=== PATIENT | male | born 1945 | race Caucasian/White ===

== ENCOUNTER 2019-04-20 13:02 | Emergency (ER) | payer MEDICARE, OTHER ==
[2019-04-20] MEDS ORDERED: Bupivacaine 0.5%/EPINEPHrine 1:200,000 50 ML MDV NERVRT ONE (13:50)
--- NOTE | 2019-04-20 14:09 | EDM.PDOC ---
ED HPI GENERAL MEDICAL PROBLEM - General Chief Complaint: Laceration Stated Complaint: LACERATION OVER LEFT EYE Time Seen by Provider: 04/20/19 13:45 Source of Information: Reports: Patient History Limitations: Reports: No Limitations - History of Present Illness INITIAL COMMENTS - FREE TEXT/NARRATIVE: Alert Pleasant 73 yo male presents with head injury and facial laceration. Patient was working on the deck of his home ([employer]) when he stepped on a 2x6 deck board which flipped up and struck him in the face resulting in a left forehead laceration with bleeding and fall without additional injuries. Patient denies LOC, nausea, vomiting, headache or additional injuries. Patient was brought to ER by for evaluation. Onset: Today, Sudden Upper Forehead Pain Score (Numeric/FACES): 0 - Related Data Allergies Allergy/AdvReac Type Severity Reaction Status Date / Time amoxicillin Allergy Intermediate Stomach Verified 04/20/19 13:35 Upset ibuprofen Allergy Intermediate Hives Verified 04/20/19 13:36 Home Meds: Home Meds NK [No Known Home Meds] 04/20/19 [History] Past Medical History - Infectious Disease History Other Infectious Disease History: Lyme Disease x 2 treatment - Past Surgical History GI Surgical History: Reports: Hernia, Inguinal Social & Family History - Tobacco Use Smoking Status *Q: Former Smoker Years of Tobacco use: 50 Packs/Tins Daily: 1 Used Tobacco, but Quit: Yes Month/Year Tobacco Last Used: 2018 - Caffeine Use Caffeine Use: Reports: Coffee Other Caffeine Use: 2 cups per day - Alcohol Use Days Per Week of Alcohol Use: 2 Number of Drinks Per Day: 3 Total Drinks Per Week: 6 - Recreational Drug Use Recreational Drug Use: No ED ROS GENERAL - Review of Systems Review Of Systems: ROS reveals no pertinent complaints other than HPI. ED EXAM, SKIN/RASH Exam: See Below Exam Limited By: No Limitations General Appearance: Alert, WD/WN, No Apparent Distress Eye Exam: Bilateral Eye: EOMI, PERRL Ears: Normal External Exam, Normal Canal, Hearing Grossly Normal, Normal TMs Nose: Normal Inspection, Normal Mucosa, No Blood Throat/Mouth: Normal Inspection, Normal Lips, Normal Teeth, Normal Gums, Normal Oropharynx, Normal Voice, No Airway Compromise Head: Normocephalic. No: Atraumatic (Laceration 3.5 cm Left medial eyebrow full thickness ) Neck: Normal Inspection, Supple, Non-Tender, Full Range of Motion Respiratory/Chest: No Respiratory Distress, Lungs Clear, Normal Breath Sounds, No Accessory Muscle Use, Chest Non-Tender Cardiovascular: Normal Peripheral Pulses, Regular Rate, Rhythm, No Gallop, Other (Elevated Blood Pressure Recheck remained elevated 190/113) Extremities: Normal Inspection Neurological: Alert, Oriented, CN II-XII Intact, Normal Cognition, Normal Gait, Normal Reflexes, No Motor/Sensory Deficits Psychiatric: Normal Affect, Normal Mood Location, Skin: Face Characteristics: Other (irregular gapping laceration left medial eyebrow with bleeding and bruising noted) ED SKIN PROCEDURES - Laceration/Wound Repair Left Medial Face Lac/Wound length In cm: 3.5 Appearance: Irregular, Mildly Contaminated Distal NVT: Neuro & Vascular Intact Anesthetic Type: Local Local Anesthesia - Bupivicaine (Marcaine): 0.5% with EPI Local Anesthetic Volume: Other (9 cc) Skin Prep: Saline Saline Irrigation (cc's): 500 Exploration/Debridement/Repair: Wound Explored, In a Bloodless Field, Explored to Base, Minimal Debridement, No Foreign Material Found, Wound Margins Revised Closed with: Sutures Suture Size: 5-0 # of Sutures: 8 (bleeding controled) Suture Type: Running Suture Size: 4-0 # of Sutures: 3 Repaired with: Vicryl Tetanus Status Addressed: Yes Complications: No Course - Vital Signs Last Recorded V/S: Last Vital Signs Temp 36.2 C 04/20/19 13:36 Pulse 62 04/20/19 15:18 Resp 16 04/20/19 15:18 BP 192/113 H 04/20/19 15:18 Pulse Ox 99 04/20/19 15:18 - Orders/Labs/Meds Orders: Active Orders 24 hr Category Date Time Status Vaccines to be Administered [RC] PER UNIT ROUTINE Care 04/20/19 14:36 Active Wound Care [RC] DAILY Care 04/20/19 13:50 Active Meds: Medications Discontinued Medications Generic Name Dose Route Start Last Admin Trade Name Mana PRN Reason Stop Dose Admin Bupivacaine HCl/Epinephrine Bitart 50 ml 04/20/19 13:50 Marcaine 0.5%/Epinephrine 1:200,000 NERVRT 04/20/19 13:51 ONETIME ONE Diphtheria/Tetanus/Acell Pertussis 0.5 ml 04/20/19 14:36 Adacel IM 04/20/19 14:37 .ONCE ONE Departure - Departure Time of Disposition: 15:25 Disposition: Home, Self-Care 01 Clinical Impression: Head injury, Laceration of eyebrow, left, Elevated blood pressure reading - Discharge Information Instructions: Concussion, Adult, Head Injury, Adult, [id number], Sutured Wound Care, Hypertension, Form - Blood Pressure Record Sheet, Preventing Hypertension, Heart Disease Prevention, How to Take Your Blood Pressure Referrals: PCP,None [Primary Care Provider] - Forms: ED Department Discharge Additional Instructions: THE DISCHARGE INSTRUCTIONS ARE INTENDED A COMPLEMENT TO AND NOT A REPLACEMENT FOR THE VERBAL INSTRUCTIONS THAT I HAVE PROVIDED YOU TODAY. AFTER GOING OVER THE PLAN OF CARE AND PROVIDING YOU WITH THE VERBAL INSTRUCTIONS. YOU HAVE HAD THE OPPORTUNITY TO ASK FURTHER QUESTIONS AND TO CLARIFY UNCERTAINTIES. THANK YOU FOR ALLOWING US TO ASSIST WITH YOUR MEDICAL CONCERNS AND NEEDS. 1. SUTURE REMOVAL IN 5-7 days on the face. 2. KEEP WOUND DRY AND CLEAN X 48 HOURS. May shower with no water directed at wound. 3. TOPICAL ANTIBIOTIC TWICE A DAY AFTER GENTLE CLEANING. 4. TYLENOL (ACETAMINOPHEN) Max 4000mg per 24 hours for headache and pain. 5. TAKE YOUR BLOOD PRESSURE 1-2 times per day at various times and bring to PCP for recheck in 1 week to discuss HTN treatment and Heart Disease Risk factors. 6. FOLLOW HEAD INJURY, CONCUSSION AND WOUND CARE INFORMATION GIVEN. 7. RETURN IF HEADACHE, NAUSEA WITH FREQUENT VOMITING, SIGNS OF HEAD INJURY, LOCAL INFECTION/FEVER, CONCERNS OR CHANGES. Discharge Instructions Concussion You were seen today for signs of a concussion. The symptoms will vary, depending on the nature of your injury and your health. You may have: headache, confusion, nausea (feel sick to your stomach), vomiting (throwing up) and problems with memory, concentrating, or sleep. You may feel dizzy, irritable, and tired. Children and teens may need help from their parents, teachers, and coaches to watch for symptoms as they recover. Please follow-up as instructed by your provider today. Return to the clinic or Local Emergency Department if: Your headache gets worse or you start to have a really bad headache even with the recommended treatment plan. You feel drowsier, have growing confusion, or slurred speech. You keep repeating yourself. You have strange behavior or are feeling more irritable. You have a seizure. You vomit (throw up) more than once. You have trouble walking. You have weakness or numbness. Your neck pain gets worse. You have a loss of consciousness. You have blood for fluid coming from your ears or nose. You have new symptoms or anything that worries you. Home Care: Get lots of rest and get enough sleep at night. Take daytime naps or rest if you feel tired. Limit physical activity and thinking activities. These can make symptoms worse. o Physical activities include gym, sports, weight training, running, exercise , and heavy lifting. o Thinking activities include homework, class work, job-related work, and screen time (phone, computer, tablet, TV, and video games). Stick to a healthy diet and drink lots of fluids. Avoid alcohol. As symptoms improve, you may slowly return to your daily activities. If symptoms get worse or return, reduce your activity. Know that it is normal to feel sad or frustrated when you do not feel right and are less active. Going Back to Work: Your care team will tell you when you are ready to return to work. Limit the amount of work you do soon after your injury. This may speed healing. Take breaks if your symptoms get worse. You should also reduce your physical activity as well as activities that require a lot of thinking until you see your doctor. You may need shorter work days and a chemical equipment sales engineer workload. Avoid heavy lifting, working with machinery, driving and working at heights until your symptoms are gone or you are cleared by a provider. Going Back to School: If you are still having symptoms, you may need extra help at school. Tell your teachers and school nurse about your injury and symptoms. Ask them to watch for problems with learning, memory, and concentrating. Symptoms may get worse when you do schoolwork, and you may become more irritable. You may need shorter school days, a reduced workload, and to postpone testing. Do not drive or take gym class (physical activity) until cleared by a provider. Returning to Sports: Never return to play if you have any symptoms. A full recovery will reduce the chances of getting hurt again. Remember, it is better to miss one or two games than a whole season. You should rest from all physical activity until you see your provider. Generally, if all symptoms have completely cleared, your provider can help guide you to slowly return to sports. If symptoms return or worsen, stop the activity and see your provider. Important: If you are in an organized sport and under age 18, you will need written consent from a healthcare provider before you return to sports. Typically, this will be your primary care or sports medicine provider. Please make an appointment. If you were given a prescription for medicine here today, be sure toread all of the information (including the package insert) that comes with your prescription. This will include important information about the medicine, its side effects, and any warnings that you need to know about. The pharmacist who fills the prescription can provide more information and answer questions you may have about the medicine. If you have questions or concerns that the pharmacist cannot address, please call or return to the Emergency Department. Remember that you can always come back to the Emergency Department if you are not able to see your regular provider in the amount of time listed above, if you get any new symptoms, or if there is anything that worries you. Discharge Instructions Head Injury You have been seen today for a head injury. Your evaluation included a history and physical examination. You may have had a CT (CAT) scan performed, though most head injuries do not require a scan. Based on this evaluation, your provider today does not feel that your head injury is serious. Please follow-up as instructed by your provider today. Return to the clinic or Local Emergency Department if: You are confused or you are not acting right. Your headache gets worse or you start to have a really bad headache even with your recommended treatment plan. You vomit (throw up) more than once. You have a seizure. You have trouble walking. You have weakness or paralysis (cannot move) in an arm or a leg. You have blood or fluid coming from your ears or nose. You have new symptoms or anything that worries you. Sleeping: It is okay for you to sleep, but someone should wake you up if instructed by your provider, and someone should check on you at your usual time to wake up. Activity: Do not drive for at least [address] if you have dizzy spells or trouble concentrating, or remembering things. Do not return to any contact sports until cleared by your regular provider. MORE INFORMATION: Concussion: A concussion is a minor head injury that may cause temporary problems with the way the brain works. Although concussions are important, they are generally not an emergency or a reason that a person needs to be hospitalized. Some concussion symptoms include confusion, amnesia (forgetful), nausea (sick to your stomach) and vomiting (throwing up), dizziness, fatigue, memory or concentration problems, irritability and sleep problems. For most people, concussions are mild and temporary but some will have more severe and persistent symptoms that require on-going care and treatment. CT Scans: Your evaluation today may have included a CT scan (CAT scan) to look for things like bleeding or a skull fracture (broken bone). CT scans involve radiation and too many CT scans can cause serious health problems like cancer, especially in children. Because of this, your provider may not have ordered a CT scan today if they think you are at low risk for a serious or life threatening problem. If you were given a prescription for medicine here today, be sure toread all of the information (including the package insert) that comes with your prescription. This will include important information about the medicine, its side effects, and any warnings that you need to know about. The pharmacist who fills the prescription can provide more information and answer questions you may have about the medicine. If you have questions or concerns that the pharmacist cannot address, please call or return to the Emergency Department. Remember that you can always come back to the clinic or go to the Local Emergency Department if you are not able to see your regular provider in the amount of time listed above, if you get any new symptoms, or if there is anything that worries you. Discharge Instructions Laceration (Cut) You were seen today for a laceration (cut). Your provider examined your laceration for any problems such a buried foreign body (like glass, a splinter, or gravel), or injury to blood vessels, tendons, and nerves. Your provider may have also rinsed and/or scrubbed your laceration to help prevent an infection. It may not be possible to find all problems with your laceration on the first visit; occasionally foreign bodies or a tendon injury can go undetected. Your laceration may have been closed in one of several ways: No closure: many wounds will heal just fine without closure. Stitches: regular stitches that require removal. Fannin: skin preston are often used in the scalp/head. Wound adhesive (glue): skin glue can be used for certain lacerations and doesnt require removal. Wound strips (aka Butterfly bandages or steri-strips): these are bandages that help to close a wound. Absorbable stitches: dissolving stitches that go away on their own and usually dont require removal. A small percentage of wounds will develop an infection regardless of how well the wound is cared for. Antibiotics are generally not indicated to prevent an infection so are only given for a small number of high-risk wounds. Some lacerations are too high risk to close, and are left open to heal because closure can increase the likelihood that an infection will develop. Remember that all lacerations, no matter how expertly repaired, will cause scarring. We consider many factors, techniques, and materials, in our efforts to provide the best possible cosmetic outcome. Please follow-up as instructed by your emergency provider today. Return to the clinic or Local Emergency Department right away if: You have more redness, swelling, pain, drainage (pus), a bad smell, or red streaking from your laceration as these symptoms could indicate an infection. You have a fever of 100.4F or more. You have bleeding that you cannot stop at home. If your cut starts to bleed , hold pressure on the bleeding area with a clean cloth or put pressure over the bandage. If the bleeding does not stop after using constant pressure for 30 minutes, you should return to the Emergency Department for further treatment. An area past the laceration is cool, pale, or blue compared with the other side, or has a slower return of color when squeezed. Your dressing seems too tight or starts to get uncomfortable or painful. For children, signs of a problem might be irritability or restlessness. You have loss of normal function or use of an area, such as being unable to straighten or bend a finger normally. You have a numb area past the laceration. Return to the Emergency Department or see your regular provider if: The laceration starts to come open. You have something coming out of the cut or a feeling that there is something in the laceration. Your wound will not heal, or keeps breaking open. There can always be glass , wood, dirt or other things in any wound. They will not always show up, even on x-rays. If a wound does not heal, this may be why, and it is important to follow-up with your regular provider. Home Care: Take your dressing off in 12-24 hours, or as instructed by your provider, to check your laceration. Remove the dressing sooner if it seems too tight or painful, or if it is getting numb, tingly, or pale past the dressing. Gently wash your laceration 1-2 times daily with clean water and mild soap. It is okay to shower or run clean water over the laceration, but do not let the laceration soak in water (no swimming). If your laceration was closed with wound adhesive or strips: pat it dry and leave it open to the air. For all other repairs: after you wash your laceration , or at least 2 times a day, apply antibiotic ointment (such as Neosporin or Bacitracin) to the laceration, then cover it with a Band-Aid or gauze. Keep the laceration clean. Wear gloves or other protective clothing if you are around dirt. Follow-up for removal: If your wound was closed with preston or regular stitches, they need to be removed according to the instructions and timeline specified by your provider today. If your wound was closed with absorbable (dissolving) sutures, they should fall out, dissolve, or not be visible in about one week. If they are still visible, then they should be removed according to the instructions and timeline specified by your provider today. Scars: To help minimize scarring: Wear sunscreen over the healed laceration when out in the sun. Massage the area regularly once healed. You may apply Vitamin E to the healed wound. Wait. Scars improve in appearance over months and years. If you were given a prescription for medicine here today, be sure toread all of the information (including the package insert) that comes with your prescription. This will include important information about the medicine, its side effects, and any warnings that you need to know about. The pharmacist who fills the prescription can provide more information and answer questions you may have about the medicine. If you have questions or concerns that the pharmacist cannot address, please call or return to the Emergency Department. Remember that you can always come back to the clinic or go to the Local Emergency Department if you are not able to see your regular provider in the amount of time listed above, if you get any new symptoms, or if there is anything that worries you. - Problem List & Annotations (1) Head injury SNOMED Code(s): 59997460 Code(s): S09.90XA - UNSPECIFIED INJURY OF HEAD, INITIAL ENCOUNTER Status: Acute Current Visit: Yes (2) Laceration of eyebrow, left SNOMED Code(s): 50159490569295429 Code(s): S01.112A - LACERATION W/O FB OF LEFT EYELID AND PERIOCULAR AREA, INIT Status: Acute Current Visit: Yes - My Orders Last 24 Hours: My Active Orders 04/20/19 13:50 Wound Care [RC] DAILY 04/20/19 14:36 Vaccines to be Administered [RC] PER UNIT ROUTINE - Assessment/Plan Last 24 Hours: My Active Orders 04/20/19 13:50 Wound Care [RC] DAILY 04/20/19 14:36 Vaccines to be Administered [RC] PER UNIT ROUTINE
[2019-04-20] MEDS ORDERED: Diphtheria,Pertussis(Acell),Tetanus Vaccine 0.5 ML SDV IM ONE (14:36)
[2019-04-20] MEDS ORDERED: Bacitracin Oint 1 GM U/D Packet TOP ONE (15:51)
== END 2019-04-20 16:00 | disposition home or self-care (01) ==
LOC: JP.ED 13:02
DX: S01.112A Laceration without foreign body of left eyelid and periocular area, initial encounter (principal); S09.90XA Unspecified injury of head, initial encounter; R03.0 Elevated blood-pressure reading, without diagnosis of hypertension; Z23 Encounter for immunization; Z87.891 Personal history of nicotine dependence; Z88.1 Allergy status to other antibiotic agents; Z88.6 Allergy status to analgesic agent; W18.39XA Other fall on same level, initial encounter; W22.8XXA Striking against or struck by other objects, initial encounter
CPT/HCPCS: 12013; 90471; 90715; 99283; J3490

== ENCOUNTER 2019-06-22 10:12 | Emergency (ER) | payer MEDICARE, OTHER ==
[2019-06-22] MEDS ORDERED: Sodium Chloride 0.9% 10 ML Syringe FLUSH PRN (10:23)
[2019-06-22] MEDS ORDERED: Diltiazem IR 30 MG Tab PO ONE (10:34)
--- NOTE | 2019-06-22 10:37 | EDM.PDOC ---
ED HPI GENERAL MEDICAL PROBLEM - General Chief Complaint: Cardiovascular Problem Stated Complaint: IRREGULAR HEARTBEAT Time Seen by Provider: 06/22/19 10:25 Source of Information: Reports: Patient, Old Records, Provider History Limitations: Reports: No Limitations - History of Present Illness INITIAL COMMENTS - FREE TEXT/NARRATIVE: 74 yo male was in the clinic today for pre op exam/labs before a surgical procedure for recently discovered renal cancer(nephrectomy). He was found at that appt to have afib with RVR. He has no hx of this and currently has no sx's from it. He is only on chlorthalidone for meds. Had a UA, CBC, CMP done in the clinic today. 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) - Related Data Allergies Allergy/AdvReac Type Severity Reaction Status Date / Time amoxicillin Allergy Intermediate Stomach Verified 06/22/19 10:34 Upset ibuprofen Allergy Intermediate Hives Verified 06/22/19 10:34 Home Meds: Home Meds Chlorthalidone 1 tab PO DAILY 06/22/19 [History] Past Medical History - Infectious Disease History Other Infectious Disease History: Lyme Disease x 2 treatment - Past Surgical History GI Surgical History: Reports: Hernia, Inguinal Social & Family History - Caffeine Use Caffeine Use: Reports: Coffee Other Caffeine Use: 2 cups per day ED ROS GENERAL - Review of Systems Review Of Systems: See Below Constitutional: Reports: No Symptoms HEENT: Reports: No Symptoms Respiratory: Reports: No Symptoms Cardiovascular: Reports: No Symptoms Endocrine: Reports: No Symptoms GI/Abdominal: Reports: No Symptoms : Reports: No Symptoms Musculoskeletal: Reports: No Symptoms Skin: Reports: No Symptoms Neurological: Reports: No Symptoms Psychiatric: Reports: No Symptoms ED EXAM, GENERAL - Physical Exam Exam: See Below Exam Limited By: No Limitations General Appearance: Alert, WD/WN, No Apparent Distress Eye Exam: Bilateral Eye: Normal Inspection Ears: Normal External Exam, Normal Canal, Hearing Grossly Normal, Normal TMs Ear Exam: Bilateral Ear: Auricle Normal, Canal Normal Nose: Normal Inspection, No Blood Throat/Mouth: Normal Inspection, Normal Lips, Normal Oropharynx, Normal Voice, No Airway Compromise Head: Atraumatic, Normocephalic Neck: Normal Inspection Respiratory/Chest: No Respiratory Distress, Lungs Clear, Normal Breath Sounds, No Accessory Muscle Use Cardiovascular: No Edema, Tachycardia, Irregularly Irregular GI/Abdominal: Normal Bowel Sounds, Soft, Non-Tender, No Distention Back Exam: Normal Inspection. No: CVA Tenderness (R), CVA Tenderness (L) Extremities: Normal Inspection, Normal Range of Motion, Non-Tender, No Pedal Edema Neurological: Alert, Oriented, CN II-XII Intact, Normal Cognition, No Motor/ Sensory Deficits Psychiatric: Normal Affect, Normal Mood Skin Exam: Warm, Dry, Intact, Normal Color, No Rash Course - Vital Signs Text/Narrative:: [id number] score is 2 Discussed issue of anticoagulation with Dr. Schreiber @ [facility], felt best to wait until after he recovers from his upcoming surgery to address anticoagulation. Converted in ER after being given IV diltiazem 25 mg, patient feels the same. Still not aware of HR or rhythm. Last Recorded V/S: Last Vital Signs Temp 36.6 C 06/22/19 10:52 Pulse 136 H 06/22/19 10:53 Resp 15 06/22/19 10:53 BP 144/88 H 06/22/19 10:53 Pulse Ox 94 L 06/22/19 10:52 - Orders/Labs/Meds Orders: Active Orders 24 hr Category Date Time Status Cardiac Monitoring [RC] .As Directed Care 06/22/19 10:13 Active Sodium Chloride 0.9% [Saline Flush] Med 06/22/19 10:23 Active 10 ml FLUSH ASDIRECTED PRN Saline Lock Insert [OM.PC] Routine Oth 06/22/19 10:23 Ordered Medication Orders Sodium Chloride (Saline Flush) 10 ml FLUSH ASDIRECTED PRN PRN Reason: Keep Vein Open Last Admin: 06/22/19 10:46 Dose: 10 ml Labs: Laboratory Tests 06/22/19 06/22/19 Range/Units 10:14 10:15 Troponin I < 0.017 (0.000-0.056) ng/mL TSH, Ultra Sensitive 1.400 (0.358-3.740) uIU/mL Meds: Medications Generic Name Dose Route Start Last Admin Trade Name Freq PRN Reason Stop Dose Admin Sodium Chloride 10 ml 06/22/19 10:23 06/22/19 10:46 Saline Flush FLUSH 10 ml ASDIRECTED PRN Administration Keep Vein Open Discontinued Medications Generic Name Dose Route Start Last Admin Trade Name Mana PRN Reason Stop Dose Admin Diltiazem HCl 60 mg 06/22/19 10:34 06/22/19 10:46 Cardizem PO 06/22/19 10:35 60 mg ONETIME ONE Administration Diltiazem HCl 25 mg 06/22/19 11:23 06/22/19 11:30 Diltiazem IVPUSH 06/22/19 11:24 25 mg ONETIME ONE Administration Departure - Departure Time of Disposition: 12:20 Disposition: Home, Self-Care 01 Condition: Fair Clinical Impression: Paroxysmal atrial fibrillation with RVR Instructions: Atrial Fibrillation, [id number] Referrals: Jermain Rios MD [Primary Care Provider] - Forms: ED Department Discharge Additional Instructions: Reduce your chlorthalidone to every other day. Start Cardizem CD 240 mg every day starting at suppertime today. F/U with your doctor later this week for recheck. - My Orders Last 24 Hours: My Active Orders 06/22/19 10:13 Cardiac Monitoring [RC] .As Directed 06/22/19 10:23 Sodium Chloride 0.9% [Saline Flush] 10 ml FLUSH ASDIRECTED PRN Saline Lock Insert [OM.PC] Routine - Assessment/Plan Last 24 Hours: My Active Orders 06/22/19 10:13 Cardiac Monitoring [RC] .As Directed 06/22/19 10:23 Sodium Chloride 0.9% [Saline Flush] 10 ml FLUSH ASDIRECTED PRN Saline Lock Insert [OM.PC] Routine
[2019-06-22] MEDS ORDERED: Diltiazem 25 MG/5 ML SDV IVPUSH ONE (11:23)
== END 2019-06-22 12:41 | disposition home or self-care (01) ==
LOC: JP.ED 10:12
DX: I48.0 Paroxysmal atrial fibrillation (principal); Z88.1 Allergy status to other antibiotic agents; Z88.6 Allergy status to analgesic agent; Z79.899 Other long term (current) drug therapy
CPT/HCPCS: 36415; 84443; 84484; 96374; 99283; 99284; A9270; J3490

== ENCOUNTER 2020-03-29 12:37 | Emergency (ER) | payer MEDICARE, OTHER ==
--- NOTE | 2020-03-29 13:40 | EDM.PDOC ---
ED HPI GENERAL MEDICAL PROBLEM - General Chief Complaint: Respiratory Problem Stated Complaint: FEET ANKLES SWELLING, SOB Time Seen by Provider: 03/29/20 13:18 Source of Information: Reports: Patient, Old Records, RN Notes Reviewed History Limitations: Reports: No Limitations - History of Present Illness INITIAL COMMENTS - FREE TEXT/NARRATIVE: 74-year-old gentleman presents emergency department a complaint of shortness of breath, he has a known history of persistent atrial fibrillation takes medications of metoprolol and amlodipine was evaluated by cardiology prior to surgery where he had a nephrectomy in fall 2018 at that time his chads vas score was 2 recommend anticoagulation after surgery however he returned to [place] and has not followed up with cardiology or primary care in the area. He presents today complaint of shortness of breath that is really progressed over the last week from returning from [place] they did drive - Related Data Allergies Allergy/AdvReac Type Severity Reaction Status Date / Time ibuprofen Allergy Intermediate Hives Verified 03/29/20 13:03 amoxicillin AdvReac Intermediate Stomach Verified 03/29/20 13:03 Upset Home Meds: Home Meds Metoprolol Tartrate 25 mg PO BID 03/29/20 [History] amLODIPine [Norvasc] 5 mg PO DAILY 03/29/20 [History] Past Medical History HEENT History: Reports: Impaired Vision Cardiovascular History: Reports: Afib, Hypertension Oncologic (Cancer) History: Reports: Renal Other Oncologic History: planned nephrectomy - Infectious Disease History Infectious Disease History: Reports: Measles, Mumps Other Infectious Disease History: Lyme Disease x 2 treatment - Past Surgical History GI Surgical History: Reports: Hernia, Inguinal Male Surgical History: Reports: Nephrectomy Other Male Surgeries/Procedures: right nephrectomy Social & Family History - Tobacco Use Smoking Status *Q: Never Smoker - Caffeine Use Caffeine Use: Reports: Coffee Other Caffeine Use: 2 cups per day - Recreational Drug Use Recreational Drug Use: No ED ROS GENERAL - Review of Systems Review Of Systems: See Below Constitutional: Reports: No Symptoms HEENT: Reports: No Symptoms Respiratory: Reports: Shortness of Breath Cardiovascular: Reports: Dyspnea on Exertion. Denies: Chest Pain, Palpitations GI/Abdominal: Reports: No Symptoms ED EXAM, GENERAL - Physical Exam Exam: See Below Exam Limited By: No Limitations General Appearance: Alert, WD/WN, No Apparent Distress Respiratory/Chest: No Respiratory Distress, Lungs Clear, Normal Breath Sounds, No Accessory Muscle Use, Chest Non-Tender Cardiovascular: No Murmur, Irregularly Irregular GI/Abdominal: Soft, Non-Tender Extremities: No Pedal Edema Course - Vital Signs Last Recorded V/S: Last Vital Signs Temp 97.7 F 03/29/20 13:00 Pulse 64 03/29/20 13:00 Resp 18 03/29/20 13:00 BP 125/85 03/29/20 13:00 Pulse Ox 96 03/29/20 13:00 - Orders/Labs/Meds Orders: Active Orders 24 hr Category Date Time Status Cardiac Monitoring [RC] .As Directed Care 03/29/20 13:31 Active EKG Documentation Completion [RC] ASDIRECTED Care 03/29/20 13:31 Active EKG 12 Lead [EK] Stat Ther 03/29/20 13:31 Ordered Labs: Laboratory Tests 03/29/20 03/29/20 03/29/20 Range/Units 13:43 13:43 13:43 WBC 7.7 (4.5-11.0) K/uL RBC 4.76 (4.30-5.90) M/uL Hgb 14.5 (12.0-15.0) g/dL Hct 44.8 (40.0-54.0) % MCV 94 (80-98) fL MCH 31 (27-31) pg MCHC 32 (32-36) % Plt Count 221 (150-400) K/uL Neut % (Auto) 58 (36-66) % Lymph % (Auto) 21 L (24-44) % [place] % (Auto) 17 H (2-6) % Eos % (Auto) 3 (2-4) % Baso % (Auto) 0 (0-1) % D-Dimer, Quantitative 537 H (0.0-400.0) ng/mL Sodium 142 (140-148) mmol/L Potassium 4.6 (3.6-5.2) mmol/L Chloride 107 (100-108) mmol/L Carbon Dioxide 28 (21-32) mmol/L Anion Gap 7.4 (5.0-14.0) mmol/L BUN 22 H (7-18) mg/dL Creatinine 1.6 H (0.8-1.3) mg/dL Est Cr Clr Drug Dosing 41.73 mL/min Estimated GFR (MDRD) 43 L (>60) Glucose 98 (74-106) mg/dL Calcium 8.7 (8.5-10.1) mg/dL Total Bilirubin 0.3 (0.2-1.0) mg/dL AST 25 (15-37) U/L ALT 41 (12-78) U/L Alkaline Phosphatase 78 (46-116) U/L Troponin I 0.026 (0.000-0.056) ng/mL NT-Pro-B Natriuret Pep 915 H (5-125) pg/mL Total Protein 7.0 (6.4-8.2) g/dL Albumin 3.5 (3.4-5.0) g/dL Globulin 3.5 (2.3-3.5) g/dL Albumin/Globulin Ratio 1.0 L (1.2-2.2) Departure - Departure Time of Disposition: 15:27 Disposition: Home, Self-Care 01 Condition: Fair Clinical Impression: Dyspnea Qualifiers: Dyspnea type: shortness of breath Qualified Code(s): R06.02 - Shortness of breath; R06.00 - Dyspnea, unspecified; R06.01 - Orthopnea - Discharge Information Instructions: Shortness of Breath, Adult, [id number] Referrals: PCP,None [Primary Care Provider] - Forms: ED Department Discharge Additional Instructions: Continue with your current medications please follow-up establish with primary care for further evaluation of your shortness of breath Sepsis Event Note (ED) - Evaluation Sepsis Screening Result: No Definite Risk - Focused Exam Vital Signs: Vital Signs Temp Pulse Resp BP Pulse Ox 03/29/20 13:00 97.7 F 64 18 125/85 96 03/29/20 12:52 97.7 F 64 18 125/85 96 - My Orders Last 24 Hours: My Active Orders 03/29/20 13:31 Cardiac Monitoring [RC] .As Directed EKG Documentation Completion [RC] ASDIRECTED EKG 12 Lead [EK] Stat - Assessment/Plan Last 24 Hours: My Active Orders 03/29/20 13:31 Cardiac Monitoring [RC] .As Directed EKG Documentation Completion [RC] ASDIRECTED EKG 12 Lead [EK] Stat Plan: Assessment Acuity = acute Site and laterality = dyspnea Etiology = unknown Manifestations = none Location of injury = Home Lab values = CBC unremarkable d-dimer slightly elevated 537 of unclear significance creatinine elevated 1.6 consistent chronic renal failure stage G3 B, troponin slightly elevated 0.026 within the normal range again of unclear significance BNP slightly elevated 915 unclear significance, chest x-ray does demonstrate a tortuous aorta otherwise no acute process Plan I did review lab work with him and chest x-ray results I offered further evaluation which would include image study of a CAT scan at this time he declined states he recently had a CAT scan in [place] his medical records are being sent to his home in [place] therefore he is going to establish with primary care and continue the further evaluation which may include evaluation to medications that he is on he does need to be anticoagulated because his chads 2 score is elevated at 3 puts him at moderate risk for thromboembolic event also he could benefit from pulmonary function test given his smoking history This note was dictated using [employer] voice recognition software please call with any questions on syntax or grammar.
--- NOTE | 2020-03-29 15:04 | CR ---
CHEST: 2 view CLINICAL HISTORY:Chest pain COMPARISON:None FINDINGS: The heart is enlarged. Pulmonary vascularity is normal. There is widening of the upper mediastinum which is felt to be due to an widening and ectasia of the thoracic aorta. Patient has an [id number] catheter from the left subclavian approach. The lung box are clear. Impression: Cardiomegaly Tortuous and ectatic thoracic aorta Lungs are clear
== END 2020-03-29 15:37 | disposition home or self-care (01) ==
LOC: JP.ED 12:37
DX: R06.02 Shortness of breath (principal); R06.01 Orthopnea; I10 Essential (primary) hypertension; I48.91 Unspecified atrial fibrillation; Z88.1 Allergy status to other antibiotic agents; Z88.6 Allergy status to analgesic agent; Z79.899 Other long term (current) drug therapy
CPT/HCPCS: 36415; 71046; 71046-26; 80053; 83880; 84484; 85025; 85379; 93005; 93010; 99284; 99285-25